=== PATIENT | female | born 1975 | race Caucasian/White ===

== ENCOUNTER 2021-06-30 12:54 | Emergency (ER) | payer MEDICAID, SELFPAY ==
[2021-06-30 12:55] VITALS: BP 128/80; PULSE 88; RESP 16; TEMP 36.8; O2SAT 92; BMI 64.0
--- NOTE | 2021-06-30 13:17 | RAD_ITS ---
EXAM: XR RIGHT KNEE COMPLETE, 4 OR MORE VIEWS CLINICAL INDICATION: injury TECHNIQUE: Four or more views of the right knee. This report was created using [employer] report generation technology. COMPARISON: None. FINDINGS: BONES/JOINTS: Unremarkable. No acute fracture. No subluxation. Normal alignment. Preservation of the joint space. No sclerotic or destructive changes observed. SOFT TISSUES: Small joint effusion in the suprapatellar bursa. Large subcutaneous fat of the knee due to obesity. No soft tissue swelling or gas. No radiopaque foreign body. RAD/Knee 4 or More Views IMPRESSION: 1. No acute fracture or dislocation of the right knee. 2. Small joint effusion in the suprapatellar bursa. Electronically Signed: Gareth Wilcox MD at 15:52 EDT , Service support ,
--- NOTE | 2021-06-30 13:17 | EDS_ITS ---
HPI History of Present Illness Chief Complaint: Fall Detail of Chief Complaint: Injury to right knee that occurred yesterday Informant: patient Narrative Narrative: Patient presents to the emergency department with complaint of an injury to the right knee that occurred yesterday. Patient states that she was walking up some steps when she slipped and fell onto her right knee. She had some discomfort but then at 1 point yesterday stepped out of a vehicle and her knee gave out causing her to fall. Patient now having hard time bearing any weight on her right leg. Patient had a hard time sleeping last night due to the discomfort. She denies hip pain or ankle pain. Denies any other injuries. [facility] Medical History (Updated 06/30/21 @ 14:[address] Lopez Reagan, DO) Anxiety Home Medications escitalopram oxalate [Lexapro] 10 mg PO DAILY 06/30/21 [History Last Taken Unknown] hydrocodone-acetaminophen 1 tab PO Q4H PRN PRN 2 Days #15 tablet 06/30/21 [Rx Last Taken Unknown] Allergy/AdvReac Type Severity Reaction Status Date / Time No Known Allergies Allergy Verified 06/30/21 12:55 Surgical History (Updated 06/30/21 @ 13:07 by Joi Casillas) Hx of hernia repair Social History Smoking Status: Never smoker ROS ROS ED Constitutional Constitutional ED: Reports systems reviewed and no addt'l complaints, except as documented; Denies body ache(s), change in weight or chills Eyes Eyes: Denies acute decrease in peripheral vision, change in vision, double vision or loss of vision ENT ENT ED: Reports none; Denies ear pain, lip swelling, loss taste/smell, neck pain, otalgia or sore throat Cardiovascular Cardiovascular: Reports none; Denies abdominal pain, chest pain with activity, leg edema, lightheadedness, palpitations, rapid heart rate or syncope Respiratory/Chest Respiratory/Chest: Reports none; Denies change in mental status, dry cough, dyspnea, hemoptysis, shortness of breath at rest or shortness of breath with exertion Gastrointestinal Gastrointestinal: Reports none; Denies abdominal pain, change in stool character, diarrhea, hematemesis, hematochezia, melena, rectal bleeding or vomiting Genitourinary Genitourinary ED: Reports none; Denies abdominal discomfort, anuria, dysuria, genital pain or polyuria Musculoskeletal Musculoskeletal: Reports none and other Details: Right knee pain/injury ; Denies arthralgias, back pain, difficulty walking, extremity pain, muscle weakness or myalgias Integumentary Reports none; Denies abscess or rash Neurologic Neurologic: Reports none; Denies abnormal gait, confusion, focal weakness, frequent falls, headache(s), loss of vision, numbness, paresthesias, radicular pain, vertigo or weakness Psychiatric Psychiatric: Reports systems reviewed and no addt'l complaints, except as documented and none; Denies behavioral changes, confusion, difficulty concentrating, hallucinations, suicidal ideation, tactile hallucinations or visual hallucinations Endocrine Endocrinology: Denies none, cold intolerance, excessive sweating, fatigue or he at intolerance Hematologic/Lymphatic Hematologic/Lymphatic: Reports none; Denies anemia, easy bleeding or easy bruising Allergic/Immunologic Allergic/Immunologic ED: Denies as per HPI, none, lip swelling, mouth swelling, throat swelling, tongue swelling or hives EXAM Physical Exam Const Vital Signs: 06/30/21 12:55 Temperature 98.3 F Temperature Source Temporal Pulse Rate 88 Respiratory Rate 16 Blood Pressure 128/80 H Blood Pressure Mean 96 Pulse Ox 92 Oxygen Delivery Method Room Air Positive well nourished and well developed General Appearance ED: well developed and NAD HEENT Reports TM's clear and moist mucous membranes normocephalic and atraumatic; Negative for trauma or tenderness Tympanic Membrane ED: Yes TM's clear Eyes PERRL and EOMs intact bilaterally General Eye ED: Negative for pale conjunctiva or scleral icterus Neck no lymphadenopathy, supple and no JVD General: Negative for tenderness Chest Wall inspection of chest normal and palpation of chest normal Chest: Negative for tenderness Resp normal respiratory effort and clear to auscultation bilaterally Effort and Inspection: Negative for respiratory distress or pain with movement Auscultation: Negative for rhonchi, wheezes or diminished lung sounds Cardio regular rate, regular rhythm, S1 normal heart sound, S2 normal heart sound and no murmurs Peripheral Pulses: pulses 2+ throughout GI normal to inspection, nondistended, normoactive bowel sounds, soft to palpation, non-tender, non-distended and no masses Back/Spine no CVA tenderness and no thoracic nor lumbar tenderness Extremity Extremity Narrative: Patient has diffuse tenderness over the right knee without any ecchymosis or bruising noted. There is no obvious effusion. Exam is limited secondary to patient's body habitus. She has limited range of motion fl exion secondary to pain. She is neurovascular intact distally. Ligamentous exam very difficult. General Extremety ED: Negative for edema General Extremity: Negative for edema Neuro oriented x3, CN's II-XII intact bilaterally, no sensory deficits noted and gait normal Sensorium / Orientation: awake, alert, oriented to person, oriented to place and oriented to time Motor Exam: strength 5/5 throughout and strength abnormal Psych mental status grossly normal Skin no rashes or lesions noted and no wounds MDM MDM MDM Narrative Medical decision making narrative: Patient will be given a knee immobilizer and a walker as she does not feel like she can use crutches. Patient will be referred to orthopedics for follow-up. She will be given a prescription for Normanna. On arrival she did receive an injection of 4 mg of morphine IM as well as Zofran 4 mg ODT. Radiography Diagnostic Testin view x-rays of right knee obtained interpreted by myself as no acute fractures or dislocations. Official report from radiology pending. Discharge Plan Triage Chief Complaint: Fall ED Provider: Lopez Reagan Dx/Rx/DC Orders Clinical Impression: Contusion of knee, Knee sprain Instructions: ED Contusion, Lower Extremity, ED Knee Sprain Prescriptions: New hydrocodone-acetaminophen [hydrocodone-acetaminophen] 1 TABLET tablet 1 tab PO Q4H PRN PRN (Reason: Pain) 2 Days Qty: 15 RF: 0 No Action escitalopram oxalate [Lexapro] 10 mg Tablet 10 mg PO DAILY RF: 0 Primary Care Provider: Dior Mendoza NP Referrals: Jonah Ayala DO [STAFF PHYSICIAN] - 3-5 Days Dior Mendoza NP, [employer] [Primary Care Provider] - Disposition Disposition: Home, Self Care
[2021-06-30] MEDS: Morphine 4 MG/ML Syringe IM (13:46)
[2021-06-30] MEDS: Ondansetron ODT 4 MG Tablet PO (13:46)
[2021-06-30 14:51] VITALS: BP 109/78; PULSE 89; RESP 20; O2SAT 90
[2021-06-30 14:56] VITALS: BP 109/78; PULSE 89; RESP 20; O2SAT 90
--- NOTE | 2021-06-30 14:58 | ED.RN ---
REVIEWED D/C INSTRUCTIONS, FOLLOW UP CARE, PRESCRIPTIONS, AND S/S THAT WOULD WARRANT A RETURN TO THE ED WITH PT. PT VERBALIZED AN UNDERSTANDING AND DENIES FURTHER QUESTIONS FOR THIS RN. PT SKIN P/W/D, RESP EVEN AND UNLABORED, PT A&O X 3, NO DISTRESS NOTED. PT AMBULATED OUT OF ED, GAIT STEADY.
== END 2021-06-30 14:59 | disposition home or self-care (01) ==
PROVIDERS: Emergency Provider Emergency Medicine; PCP Nurse Practitioner Primary Care
DX: S83.91XA Sprain of unspecified site of right knee, initial encounter (principal); S80.01XA Contusion of right knee, initial encounter; W10.9XXA Fall (on) (from) unspecified stairs and steps, initial encounter; Y93.01 Activity, walking, marching and hiking; Y92.9 Unspecified place or not applicable; F41.9 Anxiety disorder, unspecified; Z79.899 Other long term (current) drug therapy
CPT/HCPCS: 73564; 96372; 99283